=== PATIENT | female | born 1955 | race Hispanic/Latino ===

== ENCOUNTER → 2018-10-06 | Outpatient (CLI) | payer OTHER ==
[~2018-10-06] MED LIST: ROSU20TA PO
== END | disposition home or self-care (01) ==
LOC: OIH 16:13
PROVIDERS: ATTEND Internal Medicine
DX: M47.816 Spondylosis without myelopathy or radiculopathy, lumbar region (principal); M06.4 Inflammatory polyarthropathy; M15.0 Primary generalized (osteo)arthritis
CPT/HCPCS: 72100; 72202